=== PATIENT | male | born 1950 | race Asian ===

== ENCOUNTER 2022-05-18 18:36 | Emergency (ER) | payer BC, MEDICAID ==
[2022-05-18 18:51] VITALS: BP 137/82
== END 2022-05-18 19:49 | disposition left against medical advice (07) ==
LOC: ER 18:36 → EDBD 18:36 → ER 19:49
DX: M25.572 Pain in left ankle and joints of left foot (principal); Z53.21 Procedure and treatment not carried out due to patient leaving prior to being seen by health care provider